=== PATIENT | male | born 1935 | race Caucasian/White ===

== ENCOUNTER 2016-10-16 06:49 | Day surgery (SDC) | payer OTHER, MEDICARE ==
[2016-10-16 07:47] VITALS: BMI 22.9
[2016-10-16] MEDS ORDERED: PROPOFOL 20 ML ONE ×3 (08:01)
[2016-10-16] MEDS ORDERED: ETOMIDATE 20 MG/10 ML AMPUL IVPUSH ONE (08:01)
[2016-10-16] MEDS ORDERED: LIDOCAINE HCL 2% (20ML MULTI-DOSE VIAL) NR ONE (08:01)
[2016-10-16 08:53] VITALS: TEMP 98
[2016-10-16 10:17] VITALS: BP 126/63; PULSE 57
--- NOTE | 2016-10-17 11:46 | PATH ---
Surgical Pathology Report Patient Name: ASHLEY AL [facility] [place]. Rec. #: [id number] /Age/Gender: 1935 (Age: 81) / M Account: [id number] Location: U-ENDOSCOPY Taken: 10/16/2016 Received: 10/16/2016 Reported: 10/17/2016 Physicians: Liban Turner M.D. 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 DUODENUM, BIOPSY: DUODENAL MUCOSA WITHOUT SIGNIFICANT PATHOLOGIC CHANGE. NO HISTOLOGIC EVIDENCE OF GLUTEN SENSITIVE ENTEROPATHY (CELIAC DISEASE). B. 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 IMMUNOSTAIN FOR H. PYLORI IS NEGATIVE FOR ORGANISMS. Electronically Signed Declan Seo M.D. Gross Description A. Received in formalin, labeled "biopsy duodenum" are 3 timmons, irregular portions of soft tissue ranging from 0.2-0.7 cm in greatest dimension. The specimens are submitted in toto in one cassette. B. Received in formalin, labeled "biopsy gastric body erosion" is a timmons, irregular portion of soft tissue measuring 0.5 cm in greatest dimension. The specimen is submitted in toto in one cassette. 10/16/201610/16/2016
== END 2016-10-16 10:15 | disposition home or self-care (01) ==
LOC: JASU-ENDO 06:49
PROVIDERS: ATTEND Internal Medicine Gastroenterology
PROC: 0DB98ZX Excision of Duodenum, Via Natural or Artificial Opening Endoscopic, Diagnostic (ICD-10-PCS; 2016-10-16)
PROC: 0DB68ZX Excision of Stomach, Via Natural or Artificial Opening Endoscopic, Diagnostic (ICD-10-PCS; 2016-10-16)
PROC: 0DJD8ZZ Inspection of Lower Intestinal Tract, Via Natural or Artificial Opening Endoscopic (ICD-10-PCS; principal; 2016-10-16 08:00)
DX: D50.9 Iron deficiency anemia, unspecified (principal); K57.30 Diverticulosis of large intestine without perforation or abscess without bleeding; K63.89 Other specified diseases of intestine; K64.1 Second degree hemorrhoids; K62.7 Radiation proctitis; K25.9 Gastric ulcer, unspecified as acute or chronic, without hemorrhage or perforation
CPT/HCPCS: 88305-TC; 88342-TC

== ENCOUNTER 2020-08-06 18:30 | Inpatient (IN) | payer OTHER, MEDICARE ==
[2020-08-06] MEDS ORDERED: LIDOCAINE HCL 2% JELLY 10 ML CARTRIDGE ONE (19:00)
[2020-08-06 19:10] LABS: EOS % 0.1 % (0-4.5); HEMATOCRIT 43.1 % (35.4-49); HEMOGLOBIN 13.9 GM/dL (11.7-16.9); LYMPH % 3.6 % (8-40); MCH 29.8 pg (25.7-33.7); MCHC 32.2 g/dl (32.0-35.9); MEAN CELL VOLUME 92.6 fl (80-96); MEAN PLT VOLUME 10.1 fl (7.5-11.1); MONO % 1.1 % (3.8-10.2); NEUT % 95.2 % (42.8-82.8); PLATELET COUNT 222 K/MM3 (134-434); RBC 4.65 M/mm3 (4.00-5.60); RDW 14.3 % (11.9-15.9); WHITE BLOOD COUNT 26.3 K/mm3 (4.0-10.0)
[2020-08-06 19:17] LABS: INR 1.39 (0.83-1.09); PROTHROMBIN TIME (PATIENT) 16.7 SEC (9.7-13.0)
[2020-08-06 19:20] LABS: ACTIVATED PTT 32.5 SECONDS (25.2-36.5)
[2020-08-06 19:30] LABS: CHLORIDE 107 mmol/L (98-107); SODIUM 137 mmol/L (136-145)
[2020-08-06 19:31] LABS: VENOUS BASE EXCESS -8.8 mmol/L (-2-2); VENOUS O2 SATURATION 42.5 % (70-80); VENOUS PCO2 30.3 mmHg (38-52); VENOUS PH 7.332 (7.310-7.410)
[2020-08-06 19:34] LABS: EPI CELLS >36 /uL (0-25.1); HYALINE CASTS 7 /uL (0-3.1); PH,URINE >= 9.0 (5.0-8.0); URINE APPEARANCE TURBID; URINE BACTERIA >9,000 /uL (0-1359); URINE BILIRUBIN NEGATIVE (NEGATIVE); URINE COLOR DK YELLOW; URINE GLUCOSE (UA) NEGATIVE (NEGATIVE); URINE KETONE NEGATIVE (NEGATIVE); URINE LEUK ESTERASE 2+ (NEGATIVE); URINE NITRITE NEGATIVE (NEGATIVE); URINE PROTEIN 3+ (NEGATIVE); URINE RBC 159 /uL (0-23.9); URINE UROBILINOGEN 0.2 mg/dL (0.2-1.0); URINE WBC 1913 /uL (0-25.8)
[2020-08-06 19:34] LABS: ALBUMIN 1.9 g/dl (3.4-5.0); ANION GAP 14 MMOL/L (8-16); CALCIUM 8.2 mg/dL (8.5-10.1); CO2 17 mmol/L (21-32); GLUCOSE,RANDOM 131 mg/dL (74-106)
[2020-08-06 19:37] LABS: CREATININE 5.5 mg/dL (0.55-1.3); SGOT/AST 68 U/L (15-37); SGPT/ALT 31 U/L (13-61)
[2020-08-06 19:40] LABS: ALK PHOS 139 U/L (45-117)
[2020-08-06 19:47] LABS: ANISOCYTOSIS 0; MACROCYTOSIS 0; PLATELET ESTIMATE NORMAL
[2020-08-06] MEDS ORDERED: LACTATED RINGERS SOLUTION 1000 ML INFUS.BAG IV ONE (20:02)
[2020-08-06] MEDS ORDERED: CEFTRIAXONE 1,000 MG in DEXTROSE 5%-WATER - 50 ML IVPB ONE (20:04)
[2020-08-06 20:21] LABS: LACTIC ACID 5.4 mmol/L (0.4-2.0)
[2020-08-06 20:22] LABS: BLOOD UREA NITROGEN 128.2 mg/dL (7-18)
[2020-08-06] MEDS ORDERED: CEFTRIAXONE 1 GM/50 ML BAG ONE (20:44)
[2020-08-06 21:18] LABS: YEAST NEGATIVE (NEGATIVE)
[2020-08-06] MEDS ORDERED: ACETAMINOPHEN 1000 MG/100 ML VIAL (NON FORMULARY) IVPB ONE (21:33)
[2020-08-06] MEDS ORDERED: ACETAMINOPHEN INJECTION 100 ML IVPB ONE (22:06)
[2020-08-06 22:52] LABS: LACTIC ACID 4.2 mmol/L (0.4-2.0)
[2020-08-06] MEDS ORDERED: SODIUM CHLORIDE 1,000 ML IV SCH (23:45)
[2020-08-07 04:58] LABS: LACTIC ACID 2.7 mmol/L (0.4-2.0)
[2020-08-07] MEDS ORDERED: DEXTROSE 5%-WATER - 50 ML IVPB ONE ×2 (08:26→10:53)
[2020-08-07] MEDS ORDERED: cefTRIAXone SODIUM 1 GM VIAL ONE (08:26)
[2020-08-07 09:40] LABS: BASO % 0.6 % (0-2.0); EOS % 0.1 % (0-4.5); HEMOGLOBIN 11.8 GM/dL (11.7-16.9); LYMPH % 1.6 % (8-40); MCH 30.1 pg (25.7-33.7); MCHC 32.8 g/dl (32.0-35.9); MEAN CELL VOLUME 91.8 fl (80-96); MEAN PLT VOLUME 10.1 fl (7.5-11.1); MONO % 0.8 % (3.8-10.2); NEUT % 96.9 % (42.8-82.8); PLATELET COUNT 160 K/MM3 (134-434); RBC 3.93 M/mm3 (4.00-5.60); RDW 14.7 % (11.9-15.9); WHITE BLOOD COUNT 29.6 K/mm3 (4.0-10.0)
[2020-08-07] MEDS ORDERED: PIPERACILLIN/TAZOB 2.25 GM 2.25 GM in DEXTROSE 5%-WATER - 50 ML IVPB SCH ×2 (10:00→18:00)
[2020-08-07] MEDS ORDERED: CEFTRIAXONE 1 GM in DEXTROSE 5%-WATER - 50 ML IVPB SCH (10:00)
[2020-08-07 10:03] LABS: CHLORIDE 113 mmol/L (98-107); SODIUM 141 mmol/L (136-145)
[2020-08-07 10:13] LABS: ALBUMIN 1.6 g/dl (3.4-5.0); ANION GAP 13 MMOL/L (8-16); CALCIUM 8.1 mg/dL (8.5-10.1); CO2 15 mmol/L (21-32); GLUCOSE,RANDOM 103 mg/dL (74-106)
[2020-08-07 10:17] LABS: CREATININE 4.9 mg/dL (0.55-1.3); SGOT/AST 90 U/L (15-37); SGPT/ALT 34 U/L (13-61)
[2020-08-07 10:18] LABS: BILIRUBIN,TOTAL 0.8 mg/dL (0.2-1); TOT PROT 5.3 g/dl (6.4-8.2)
[2020-08-07 10:19] LABS: ALK PHOS 127 U/L (45-117)
[2020-08-07 10:30] LABS: BLOOD UREA NITROGEN 139.8 mg/dL (7-18)
[2020-08-07] MEDS ORDERED: ACETAMINOPHEN 1000 MG/100 ML VIAL (NON FORMULARY) IVPB PRN ×3 (10:39→21:29)
[2020-08-07] MEDS ORDERED: PIPERACILLIN/TAZOBACTAM 2.25 GM VIAL IVPB ONE (10:53)
[2020-08-07 11:02] LABS: ANISOCYTOSIS 0; MACROCYTOSIS 0; PLATELET ESTIMATE NORMAL
[2020-08-07] MEDS ORDERED: VANCOMYCIN 1 GRAM (PRE-DOCKED) 1,000 MG/250 ML BAG IVPB ONE (12:37)
[2020-08-07] MEDS ORDERED: CLINDAMYCIN 900 MG PREMIX IVPB 900 MG/50 ML BAG IVPB SCH ×2 (12:45→18:00)
[2020-08-07] MEDS ORDERED: LIDOCAINE HCL 1%, 10 MG/ML (20ML VIAL) NR SCH ×2 (13:45→17:53)
[2020-08-07] MEDS ORDERED: PT OWN MED DRAWER 7, Y5N ONE (13:51)
[2020-08-07] MEDS ORDERED: ETOMIDATE 20 MG/10 ML AMPUL IVPUSH ONE (14:51)
[2020-08-07] MEDS ORDERED: PROPOFOL 20 ML ONE (14:52)
[2020-08-07] MEDS ORDERED: ROCURONIUM BROMIDE 50 MG/5 ML SYRINGE ONE ×2 (14:54→17:13)
[2020-08-07] MEDS ORDERED: ePHEDrine SULFATE 50 MG/1 ML AMPULE ONE (15:02)
[2020-08-07] MEDS ORDERED: PHENYLEPHRINE HCL 10 MG/1 ML SINGLE DOSE VIAL ONE (15:03)
[2020-08-07] MEDS ORDERED: EPHEDRINE SULFATE/0.9% NACL/PF 50 MG/10 ML SYRINGE NR ONE (15:20)
[2020-08-07] MEDS ORDERED: LIDOCAINE HCL/PF 2% SDV 5ML VIAL ONE (16:29)
[2020-08-07] MEDS ORDERED: ACETAMINOPHEN INJECTION 100 ML IVPB ONE (16:33)
[2020-08-07] MEDS ORDERED: SODIUM HYPOCHLORITE 0.5% 473 ML- BULK BOTTLE TP ONE (16:48)
[2020-08-07] MEDS ORDERED: DEXMEDETOMIDINE IN 0.9 % NACL 400 MCG/100 ML VIAL IVPB SCH (17:45)
[2020-08-07] MEDS ORDERED: SODIUM CHLORIDE 1,000 ML IV SCH ×3 (17:53→18:05)
[2020-08-07] MEDS ORDERED: MIDAZOLAM HCL 2 MG/2 ML SINGLE DOSE VIAL IVPUSH ONE (17:54)
[2020-08-07] MEDS ORDERED: D5-1/2NS+20 MEQ KCL - 20 MEQ/1,000 ML INFUS.BAG IV SCH (18:00)
[2020-08-07] MEDS ORDERED: LACTATED RINGERS SOLUTION 1,000 ML/1,000 ML INFUS.BAG IV SCH ×2 (18:15→21:29)
[2020-08-07] MEDS ORDERED: MUPIROCIN 2% TOPICAL OINTMENT FOR DECOLONIZATION NS SCH ×2 (22:00)
[2020-08-07] MEDS ORDERED: CHLORHEXIDINE GLUCONATE 4% CLEANSER FOR DECOLONIZATION TP SCH ×2 (22:00)
[2020-08-08] MEDS ORDERED: PIPERACILLIN/TAZOBACTAM 2.25 GM VIAL IVPB ONE ×4 (01:18→23:31)
[2020-08-08] MEDS ORDERED: DEXTROSE 5%-WATER - 50 ML IVPB ONE ×4 (01:18→23:32)
[2020-08-08] MEDS: PIPERACILLIN/TAZOB 2.25 GM 2.25 GM in DEXTROSE 5%-WATER - 50 ML IVPB SCH ×3 (01:21→17:22)
[2020-08-08] MEDS: CLINDAMYCIN 900 MG PREMIX IVPB 900 MG/50 ML BAG IVPB SCH ×3 (01:21→17:22)
[2020-08-08 07:05] LABS: BASO % 0.2 % (0-2.0); EOS % 0.1 % (0-4.5); HEMATOCRIT 28.1 % (35.4-49); HEMOGLOBIN 9.1 GM/dL (11.7-16.9); LYMPH % 2.9 % (8-40); MCH 30.1 pg (25.7-33.7); MCHC 32.4 g/dl (32.0-35.9); MEAN PLT VOLUME 10.1 fl (7.5-11.1); MONO % 1.8 % (3.8-10.2); PLATELET COUNT 101 K/MM3 (134-434); RBC 3.03 M/mm3 (4.00-5.60); RDW 14.9 % (11.9-15.9); WHITE BLOOD COUNT 21.8 K/mm3 (4.0-10.0)
[2020-08-08 07:29] LABS: CHLORIDE 115 mmol/L (98-107); SODIUM 142 mmol/L (136-145)
[2020-08-08 07:32] LABS: ANION GAP 10 MMOL/L (8-16); CO2 17 mmol/L (21-32); GLUCOSE,RANDOM 91 mg/dL (74-106); MAGNESIUM 2.8 mg/dL (1.8-2.4)
[2020-08-08 07:35] LABS: CREATININE 4.5 mg/dL (0.55-1.3); PHOSPHOROUS 7.8 mg/dL (2.5-4.9); SGOT/AST 58 U/L (15-37); SGPT/ALT 26 U/L (13-61)
[2020-08-08 07:36] LABS: BILIRUBIN,TOTAL 0.6 mg/dL (0.2-1)
[2020-08-08 07:37] LABS: TOT PROT 4.1 g/dl (6.4-8.2)
[2020-08-08 07:51] LABS: ALBUMIN 1.2 g/dl (3.4-5.0); ALK PHOS 91 U/L (45-117)
[2020-08-08] MEDS: FENTANYL NS IVPB 500 MCG/100 ML BAG IVPB SCH (09:05)
[2020-08-08 09:06] LABS: ANISOCYTOSIS 0; MACROCYTOSIS 0; PLATELET ESTIMATE DECREASED; TARGET CELLS 1+
[2020-08-08] MEDS ORDERED: LACTATED RINGERS SOLUTION 1000 ML INFUS.BAG IV ONE ×2 (09:20→09:21)
[2020-08-08] MEDS ORDERED: DEXTROSE 5%-0.45% SALINE 1,000 ML IV SCH (09:45)
[2020-08-08] MEDS: DEXMEDETOMIDINE IN 0.9 % NACL 400 MCG/100 ML VIAL IVPB SCH ×2 (12:14→16:10)
[2020-08-08] MEDS ORDERED: SODIUM CHLORIDE 0.9% 500 ML INFUS.BAG IV ONE ×2 (13:37→17:19)
[2020-08-08] MEDS ORDERED: LEVOTHYROXINE SODIUM 100 MCG VIAL IVPUSH SCH (14:45)
[2020-08-08] MEDS: NOREPINEPHRINE BITARTRATE 16,000 MCG in SODIUM CHLORIDE 484 ML IV SCH (15:15)
[2020-08-08 16:07] LABS: ARTERIAL BLD GAS O2 SATURATION 98.7 mmHg (95-98); ARTERIAL BLOOD GAS BASE EXCESS -11.1 mmol/L (-2-2); ARTERIAL BLOOD GAS PO2 149.1 mmHg (80-100); ARTERIAL BLOOD GAS pH 7.265 (7.350-7.450)
[2020-08-08 16:11] LABS: ALLENS TEST POSITIVE
[2020-08-08 16:12] LABS: VENT RATE 14
[2020-08-08 16:13] LABS: VENT MODE AC
[2020-08-08 18:17] LABS: HEMATOCRIT 26.7 % (35.4-49); HEMOGLOBIN 8.5 GM/dL (11.7-16.9); MCH 29.7 pg (25.7-33.7); MCHC 31.8 g/dl (32.0-35.9); MEAN CELL VOLUME 93.2 fl (80-96); MEAN PLT VOLUME 10.1 fl (7.5-11.1); PLATELET COUNT 105 K/MM3 (134-434); RBC 2.87 M/mm3 (4.00-5.60); RDW 14.6 % (11.9-15.9); WHITE BLOOD COUNT 21.7 K/mm3 (4.0-10.0)
[2020-08-08 18:43] LABS: CHLORIDE 116 mmol/L (98-107); SODIUM 143 mmol/L (136-145)
[2020-08-08 18:46] LABS: ANION GAP 9 MMOL/L (8-16); CO2 18 mmol/L (21-32); GLUCOSE,RANDOM 141 mg/dL (74-106)
[2020-08-08 18:48] LABS: CREATININE 3.9 mg/dL (0.55-1.3)
[2020-08-08 18:54] LABS: BLOOD UREA NITROGEN 136.8 mg/dL (7-18)
[2020-08-08] MEDS: DEXTROSE 5%-0.45% SALINE 1,000 ML IV SCH (19:00)
[2020-08-09] MEDS: PIPERACILLIN/TAZOB 2.25 GM 2.25 GM in DEXTROSE 5%-WATER - 50 ML IVPB SCH ×3 (01:17→17:48)
[2020-08-09] MEDS: CLINDAMYCIN 900 MG PREMIX IVPB 900 MG/50 ML BAG IVPB SCH ×3 (02:01→17:46)
[2020-08-09 07:25] LABS: BASO % 0.1 % (0-2.0); HEMATOCRIT 29.4 % (35.4-49); HEMOGLOBIN 9.6 GM/dL (11.7-16.9); LYMPH % 4.6 % (8-40); MCH 29.9 pg (25.7-33.7); MCHC 32.6 g/dl (32.0-35.9); MEAN CELL VOLUME 91.9 fl (80-96); MEAN PLT VOLUME 9.6 fl (7.5-11.1); MONO % 1.8 % (3.8-10.2); NEUT % 93.5 % (42.8-82.8); PLATELET COUNT 119 K/MM3 (134-434); WHITE BLOOD COUNT 22.6 K/mm3 (4.0-10.0)
[2020-08-09 07:37] LABS: CHLORIDE 117 mmol/L (98-107); SODIUM 143 mmol/L (136-145)
[2020-08-09 07:44] LABS: ALBUMIN 1.3 g/dl (3.4-5.0); ANION GAP 9 MMOL/L (8-16); CO2 17 mmol/L (21-32); GLUCOSE,RANDOM 146 mg/dL (74-106); MAGNESIUM 2.7 mg/dL (1.8-2.4)
[2020-08-09 07:45] LABS: CREATININE 3.6 mg/dL (0.55-1.3)
[2020-08-09 07:46] LABS: PHOSPHOROUS 6.4 mg/dL (2.5-4.9)
[2020-08-09 07:48] LABS: ALK PHOS 108 U/L (45-117); BILIRUBIN,TOTAL 0.4 mg/dL (0.2-1); SGOT/AST 42 U/L (15-37); SGPT/ALT 26 U/L (13-61); TOT PROT 4.8 g/dl (6.4-8.2)
[2020-08-09 07:57] LABS: CALCIUM 6.9 mg/dL (8.5-10.1)
[2020-08-09] MEDS: NOREPINEPHRINE BITARTRATE 16,000 MCG in SODIUM CHLORIDE 484 ML IV SCH ×2 (09:29→17:40)
[2020-08-09] MEDS ORDERED: PIPERACILLIN/TAZOBACTAM 2.25 GM VIAL IVPB ONE ×2 (10:45→17:44)
[2020-08-09] MEDS ORDERED: DEXTROSE 5%-WATER - 50 ML IVPB ONE ×2 (10:46→17:44)
[2020-08-09] MEDS ORDERED: PT OWN MED DRAWER 7, Y5N ONE (11:11)
[2020-08-09 11:13] LABS: ANISOCYTOSIS 1+; MACROCYTOSIS 1+; OVALOCYTE 1+; PLATELET ESTIMATE DECREASED; TARGET CELLS 1+; TOXIC GRANULATION 2+
[2020-08-09] MEDS: VASOPRESSIN 40 UNITS in SODIUM CHLORIDE 98 ML IVPB SCH ×3 (11:48→20:11)
[2020-08-09] MEDS: FENTANYL NS IVPB 500 MCG/100 ML BAG IVPB SCH (15:24)
[2020-08-09] MEDS: DEXMEDETOMIDINE IN 0.9 % NACL 400 MCG/100 ML VIAL IVPB SCH (15:24)
[2020-08-09] MEDS: DEXTROSE 5%-0.45% SALINE 1,000 ML IV SCH ×2 (15:30→20:08)
[2020-08-10] MEDS: FENTANYL NS IVPB 500 MCG/100 ML BAG IVPB SCH ×4 (01:01→20:40)
[2020-08-10] MEDS ORDERED: PIPERACILLIN/TAZOBACTAM 2.25 GM VIAL IVPB ONE ×3 (01:05→17:47)
[2020-08-10] MEDS ORDERED: DEXTROSE 5%-WATER - 50 ML IVPB ONE ×3 (01:05→17:47)
[2020-08-10] MEDS: CLINDAMYCIN 900 MG PREMIX IVPB 900 MG/50 ML BAG IVPB SCH ×2 (01:10→09:54)
[2020-08-10] MEDS: PIPERACILLIN/TAZOB 2.25 GM 2.25 GM in DEXTROSE 5%-WATER - 50 ML IVPB SCH ×3 (02:05→17:48)
[2020-08-10] MEDS: DEXMEDETOMIDINE IN 0.9 % NACL 400 MCG/100 ML VIAL IVPB SCH ×2 (02:32→15:54)
[2020-08-10] MEDS: VASOPRESSIN 40 UNITS in SODIUM CHLORIDE 98 ML IVPB SCH ×2 (02:33→19:28)
[2020-08-10 07:12] LABS: EOS % 0.4 % (0-4.5); HEMATOCRIT 26.4 % (35.4-49); HEMOGLOBIN 8.6 GM/dL (11.7-16.9); LYMPH % 3.5 % (8-40); MCHC 32.8 g/dl (32.0-35.9); MEAN CELL VOLUME 91.7 fl (80-96); MEAN PLT VOLUME 10.2 fl (7.5-11.1); MONO % 2.1 % (3.8-10.2); PLATELET COUNT 94 K/MM3 (134-434); RBC 2.88 M/mm3 (4.00-5.60); RDW 15.2 % (11.9-15.9); WHITE BLOOD COUNT 16.9 K/mm3 (4.0-10.0)
[2020-08-10 07:27] LABS: CALCIUM 7.1 mg/dL (8.5-10.1); MAGNESIUM 2.4 mg/dL (1.8-2.4)
[2020-08-10 07:28] LABS: ALBUMIN 1.2 g/dl (3.4-5.0)
[2020-08-10 07:30] LABS: CREATININE 2.8 mg/dL (0.55-1.3); PHOSPHOROUS 5.2 mg/dL (2.5-4.9)
[2020-08-10 07:32] LABS: BILIRUBIN,TOTAL 0.6 mg/dL (0.2-1); TOT PROT 4.8 g/dl (6.4-8.2)
[2020-08-10 07:41] LABS: BLOOD UREA NITROGEN 99.7 mg/dL (7-18)
[2020-08-10] MEDS: DEXTROSE 5%-0.45% SALINE 1,000 ML IV SCH (10:00)
[2020-08-10 10:28] LABS: ANISOCYTOSIS 1+; MACROCYTOSIS 1+; PLATELET ESTIMATE DECREASED
[2020-08-10] MEDS ORDERED: PT OWN MED DRAWER 7, Y5N ONE (14:46)
[2020-08-10] MEDS ORDERED: SODIUM HYPOCHLORITE 0.5% 473 ML- BULK BOTTLE TP SCH (15:00)
[2020-08-10 15:43] VITALS: BMI 21.2
[2020-08-10] MEDS: MORPHINE SULFATE 2 MG/ML VIAL IVPUSH PRN (16:40)
[2020-08-10] MEDS ORDERED: MORPHINE SULFATE 2 MG/ML VIAL ONE (16:41)
[2020-08-10] MEDS: NOREPINEPHRINE BITARTRATE 16,000 MCG in SODIUM CHLORIDE 484 ML IV SCH (17:43)
[2020-08-10] MEDS: SODIUM HYPOCHLORITE 0.25%- 473 ML BULK BOTTLE TP SCH (17:44)
[2020-08-10] MEDS ORDERED: PROPOFOL 1,000,000 MCG/100 ML VIAL ONE (18:56)
[2020-08-10] MEDS: PROPOFOL 1,000,000 MCG/100 ML VIAL IVPUSH SCH (19:00)
[2020-08-10] MEDS ORDERED: POLYETHYLENE GLYCOL 3350 119 GM BTL PO PRN (20:50)
[2020-08-10] MEDS ORDERED: ALBUTEROL SO4 2.5/IPRATROPIUM 0.5 INH SOL 3 ML VIAL.NEB. NEB PRN (20:50)
[2020-08-10] MEDS: HEPARIN NA (PORCINE) 5,000 UNITS/ML 1ML VIAL SQ SCH (21:00)
[2020-08-11] MEDS ORDERED: DEXTROSE 5%-WATER - 50 ML IVPB ONE ×3 (01:08→16:39)
[2020-08-11] MEDS ORDERED: PIPERACILLIN/TAZOBACTAM 2.25 GM VIAL IVPB ONE ×3 (01:08→16:39)
[2020-08-11] MEDS: PIPERACILLIN/TAZOB 2.25 GM 2.25 GM in DEXTROSE 5%-WATER - 50 ML IVPB SCH ×3 (01:35→18:28)
[2020-08-11] MEDS: DEXTROSE 5%-0.45% SALINE 1,000 ML IV SCH ×2 (01:36→09:48)
[2020-08-11] MEDS: FENTANYL NS IVPB 500 MCG/100 ML BAG IVPB SCH ×2 (03:48→09:47)
[2020-08-11] MEDS: PROPOFOL 1,000,000 MCG/100 ML VIAL IVPUSH SCH ×2 (03:48→20:35)
[2020-08-11 07:32] LABS: BASO % 0.2 % (0-2.0); EOS % 0.5 % (0-4.5); HEMATOCRIT 24.8 % (35.4-49); HEMOGLOBIN 8.1 GM/dL (11.7-16.9); LYMPH % 4.4 % (8-40); MCH 29.6 pg (25.7-33.7); MCHC 32.5 g/dl (32.0-35.9); MEAN CELL VOLUME 91.1 fl (80-96); MEAN PLT VOLUME 10.5 fl (7.5-11.1); NEUT % 92.9 % (42.8-82.8); PLATELET COUNT 84 K/MM3 (134-434); RBC 2.73 M/mm3 (4.00-5.60); RDW 14.8 % (11.9-15.9); WHITE BLOOD COUNT 15.9 K/mm3 (4.0-10.0)
[2020-08-11 07:56] LABS: BLOOD UREA NITROGEN 82.3 mg/dL (7-18)
[2020-08-11 07:57] LABS: ALBUMIN 1.2 g/dl (3.4-5.0); MAGNESIUM 2.2 mg/dL (1.8-2.4)
[2020-08-11 07:59] LABS: CREATININE 2.1 mg/dL (0.55-1.3); PHOSPHOROUS 4.2 mg/dL (2.5-4.9)
[2020-08-11 08:01] LABS: TOT PROT 4.8 g/dl (6.4-8.2)
[2020-08-11 08:04] LABS: BILIRUBIN,TOTAL 1.2 mg/dL (0.2-1)
[2020-08-11 08:39] LABS: CALCIUM 7.2 mg/dL (8.5-10.1)
[2020-08-11] MEDS ORDERED: SODIUM CHLORIDE 500 ML IV STA (08:50)
[2020-08-11] MEDS: KCL 10 MEQ IVPB 10 MEQ/100 ML INFUS.BAG IVPB SCH ×2 (09:41→20:50)
[2020-08-11] MEDS: SODIUM HYPOCHLORITE 0.25%- 473 ML BULK BOTTLE TP SCH (09:46)
[2020-08-11] MEDS: HEPARIN NA (PORCINE) 5,000 UNITS/ML 1ML VIAL SQ SCH ×2 (09:46→22:44)
[2020-08-11 12:51] LABS: ANISOCYTOSIS 0; HELMET CELLS 0; HOWELL-JOLLY BODIES 0; MACROCYTOSIS 0; OVALOCYTE 0; PLATELET ESTIMATE DECREASED; ROULEAU 0; SICKELED CELLS 0; TARGET CELLS 0; TEAR DROP CELLS 0; TOXIC GRANULATION 0
[2020-08-11] MEDS: NOREPINEPHRINE BITARTRATE 16,000 MCG in SODIUM CHLORIDE 484 ML IV SCH (20:35)
[2020-08-11] MEDS: VASOPRESSIN 40 UNITS in SODIUM CHLORIDE 98 ML IVPB SCH (20:35)
[2020-08-11] MEDS ORDERED: METOPROLOL TARTRATE 5 MG/5 ML VIAL ONE (23:55)
[2020-08-11] MEDS ORDERED: METOPROLOL TARTRATE 5 MG/5 ML VIAL IVPUSH PRN (23:55)
[2020-08-11] MEDS: MORPHINE SULFATE 2 MG/ML VIAL IVPUSH PRN (23:57)
[2020-08-12] MEDS ORDERED: DEXTROSE 5%-WATER - 50 ML IVPB ONE ×3 (01:30→17:20)
[2020-08-12] MEDS ORDERED: PIPERACILLIN/TAZOBACTAM 2.25 GM VIAL IVPB ONE ×3 (01:30→17:20)
[2020-08-12] MEDS: PIPERACILLIN/TAZOB 2.25 GM 2.25 GM in DEXTROSE 5%-WATER - 50 ML IVPB SCH ×3 (01:41→17:28)
[2020-08-12 07:13] LABS: BASO % 0.2 % (0-2.0); EOS % 1.1 % (0-4.5); HEMATOCRIT 25.6 % (35.4-49); HEMOGLOBIN 8.6 GM/dL (11.7-16.9); LYMPH % 6.1 % (8-40); MCH 30.3 pg (25.7-33.7); MCHC 33.6 g/dl (32.0-35.9); MEAN PLT VOLUME 10.1 fl (7.5-11.1); MONO % 2.4 % (3.8-10.2); NEUT % 90.2 % (42.8-82.8); PLATELET COUNT 128 K/MM3 (134-434); RBC 2.84 M/mm3 (4.00-5.60); RDW 14.6 % (11.9-15.9); WHITE BLOOD COUNT 13.5 K/mm3 (4.0-10.0)
[2020-08-12 07:40] LABS: ALBUMIN 1.3 g/dl (3.4-5.0); CALCIUM 7.2 mg/dL (8.5-10.1)
[2020-08-12 07:41] LABS: MAGNESIUM 2.2 mg/dL (1.8-2.4)
[2020-08-12 07:44] LABS: CREATININE 1.3 mg/dL (0.55-1.3)
[2020-08-12 07:45] LABS: BILIRUBIN,TOTAL 0.7 mg/dL (0.2-1); TOT PROT 5.1 g/dl (6.4-8.2)
[2020-08-12 07:50] LABS: BLOOD UREA NITROGEN 48.2 mg/dL (7-18)
[2020-08-12] MEDS ORDERED: KCL 10 MEQ IVPB 10 MEQ/100 ML INFUS.BAG IVPB SCH (08:15)
[2020-08-12] MEDS: FENTANYL NS IVPB 500 MCG/100 ML BAG IVPB SCH (08:51)
[2020-08-12] MEDS: SODIUM HYPOCHLORITE 0.25%- 473 ML BULK BOTTLE TP SCH (09:08)
[2020-08-12] MEDS: HEPARIN NA (PORCINE) 5,000 UNITS/ML 1ML VIAL SQ SCH ×2 (09:08→22:09)
[2020-08-12] MEDS ORDERED: FUROSEMIDE 40 MG/4 ML INJECTABLE VIAL IVPUSH ONE (10:07)
[2020-08-12] MEDS ORDERED: FUROSEMIDE 40 MG/4 ML INJECTABLE VIAL ONE (10:14)
[2020-08-12] MEDS: DEXTROSE 5%-0.45% SALINE 1,000 ML IV SCH ×2 (11:58→17:27)
[2020-08-12] MEDS: AMINO ACIDS/PROTEIN HYDROLYS 30 ML LIQUID.PKT PO SCH ×2 (11:58→17:27)
[2020-08-12] MEDS: MORPHINE SULFATE 2 MG/ML VIAL IVPUSH PRN (13:58)
[2020-08-12] MEDS: NOREPINEPHRINE BITARTRATE 16,000 MCG in SODIUM CHLORIDE 484 ML IV SCH (15:40)
[2020-08-12] MEDS: VASOPRESSIN 40 UNITS in SODIUM CHLORIDE 98 ML IVPB SCH (17:27)
[2020-08-12] MEDS ORDERED: ALBUTEROL SO4 2.5/IPRATROPIUM 0.5 INH SOL 3 ML VIAL.NEB. NEB PRN (20:07)
[2020-08-12] MEDS ORDERED: METOPROLOL TARTRATE 5 MG/5 ML VIAL IVPUSH PRN (20:07)
[2020-08-12] MEDS ORDERED: POLYETHYLENE GLYCOL 3350 119 GM BTL PO PRN (20:07)
[2020-08-13] MEDS ORDERED: PIPERACILLIN/TAZOBACTAM 2.25 GM VIAL IVPB ONE ×3 (01:22→18:12)
[2020-08-13] MEDS ORDERED: DEXTROSE 5%-WATER - 50 ML IVPB ONE ×3 (01:22→18:13)
[2020-08-13] MEDS: PIPERACILLIN/TAZOB 2.25 GM 2.25 GM in DEXTROSE 5%-WATER - 50 ML IVPB SCH ×3 (01:37→18:19)
[2020-08-13] MEDS: AMINO ACIDS/PROTEIN HYDROLYS 30 ML LIQUID.PKT PO SCH ×3 (09:12→18:20)
[2020-08-13] MEDS ORDERED: PT OWN MED DRAWER 7, Y5N ONE (11:00)
[2020-08-13] MEDS: HEPARIN NA (PORCINE) 5,000 UNITS/ML 1ML VIAL SQ SCH ×2 (11:12→22:08)
[2020-08-13] MEDS: DEXTROSE 5%-0.45% SALINE 1,000 ML IV SCH (11:14)
[2020-08-13] MEDS: MORPHINE SULFATE 2 MG/ML VIAL IVPUSH PRN ×2 (11:15→18:23)
[2020-08-13] MEDS: PROPOFOL 1,000,000 MCG/100 ML VIAL IVPUSH SCH (11:16)
[2020-08-13 11:23] LABS: BASO % 0.1 % (0-2.0); EOS % 2.1 % (0-4.5); HEMATOCRIT 26.7 % (35.4-49); HEMOGLOBIN 8.7 GM/dL (11.7-16.9); LYMPH % 6.3 % (8-40); MCHC 32.5 g/dl (32.0-35.9); MEAN CELL VOLUME 92.2 fl (80-96); MEAN PLT VOLUME 10.7 fl (7.5-11.1); MONO % 3.5 % (3.8-10.2); PLATELET COUNT 181 K/MM3 (134-434); RBC 2.89 M/mm3 (4.00-5.60); RDW 14.8 % (11.9-15.9); WHITE BLOOD COUNT 16.2 K/mm3 (4.0-10.0)
[2020-08-13 11:40] LABS: CALCIUM 7.4 mg/dL (8.5-10.1)
[2020-08-13 11:41] LABS: ALBUMIN 1.3 g/dl (3.4-5.0); BLOOD UREA NITROGEN 38.2 mg/dL (7-18); MAGNESIUM 2.1 mg/dL (1.8-2.4)
[2020-08-13 11:44] LABS: CREATININE 1.7 mg/dL (0.55-1.3); PHOSPHOROUS 2.8 mg/dL (2.5-4.9)
[2020-08-13 11:45] LABS: BILIRUBIN,TOTAL 0.5 mg/dL (0.2-1); TOT PROT 5.6 g/dl (6.4-8.2)
[2020-08-13] MEDS ORDERED: SODIUM CHLORIDE 0.45% 1,000 ML IV SCH (14:00)
[2020-08-13] MEDS: SODIUM HYPOCHLORITE 0.25%- 473 ML BULK BOTTLE TP SCH (15:49)
[2020-08-14] MEDS ORDERED: DEXTROSE 5%-WATER - 50 ML IVPB ONE ×4 (01:27→20:15)
[2020-08-14] MEDS ORDERED: PIPERACILLIN/TAZOBACTAM 2.25 GM VIAL IVPB ONE ×4 (01:27→20:15)
[2020-08-14] MEDS: PIPERACILLIN/TAZOB 2.25 GM 2.25 GM in DEXTROSE 5%-WATER - 50 ML IVPB SCH ×4 (02:11→20:45)
[2020-08-14] MEDS ORDERED: PT OWN MED DRAWER 7, Y5N ONE (10:34)
[2020-08-14] MEDS: AMINO ACIDS/PROTEIN HYDROLYS 30 ML LIQUID.PKT PO SCH ×2 (10:38→18:29)
[2020-08-14] MEDS: HEPARIN NA (PORCINE) 5,000 UNITS/ML 1ML VIAL SQ SCH ×2 (10:39→21:39)
[2020-08-14] MEDS: MULTIVIT-MINERALS ORAL LIQUID PO SCH (10:41)
[2020-08-14] MEDS: SODIUM HYPOCHLORITE 0.25%- 473 ML BULK BOTTLE TP SCH (11:02)
[2020-08-14] MEDS: SODIUM CHLORIDE 0.45% 1,000 ML IV SCH (15:24)
[2020-08-15] MEDS ORDERED: DEXTROSE 5%-WATER - 50 ML IVPB ONE ×4 (02:17→20:11)
[2020-08-15] MEDS ORDERED: PIPERACILLIN/TAZOBACTAM 2.25 GM VIAL IVPB ONE ×4 (02:17→20:11)
[2020-08-15] MEDS: PIPERACILLIN/TAZOB 2.25 GM 2.25 GM in DEXTROSE 5%-WATER - 50 ML IVPB SCH ×4 (02:38→21:10)
[2020-08-15] MEDS: SODIUM CHLORIDE 0.45% 1,000 ML IV SCH ×2 (05:25→15:44)
[2020-08-15 09:20] LABS: HEMATOCRIT 24.6 % (35.4-49); MCH 30.4 pg (25.7-33.7); MCHC 32.6 g/dl (32.0-35.9); MEAN CELL VOLUME 93.1 fl (80-96); MEAN PLT VOLUME 9.9 fl (7.5-11.1); PLATELET COUNT 263 K/MM3 (134-434); RBC 2.64 M/mm3 (4.00-5.60); RDW 14.4 % (11.9-15.9); WHITE BLOOD COUNT 14.5 K/mm3 (4.0-10.0)
[2020-08-15] MEDS ORDERED: PT OWN MED DRAWER 7, Y5N ONE (09:51)
[2020-08-15] MEDS: HEPARIN NA (PORCINE) 5,000 UNITS/ML 1ML VIAL SQ SCH ×2 (09:53→21:10)
[2020-08-15] MEDS: AMINO ACIDS/PROTEIN HYDROLYS 30 ML LIQUID.PKT PO SCH ×2 (09:53→18:12)
[2020-08-15] MEDS: SODIUM HYPOCHLORITE 0.25%- 473 ML BULK BOTTLE TP SCH (09:54)
[2020-08-15] MEDS: MULTIVIT-MINERALS ORAL LIQUID PO SCH (09:54)
[2020-08-15 09:58] LABS: ALBUMIN 1.3 g/dl (3.4-5.0); BLOOD UREA NITROGEN 29.6 mg/dL (7-18)
[2020-08-15 09:59] LABS: CALCIUM 7.1 mg/dL (8.5-10.1)
[2020-08-15 10:01] LABS: CREATININE 1.2 mg/dL (0.55-1.3)
[2020-08-15 10:03] LABS: BILIRUBIN,TOTAL 0.4 mg/dL (0.2-1)
[2020-08-16] MEDS: SODIUM CHLORIDE 0.45% 1,000 ML IV SCH ×2 (02:41→10:38)
[2020-08-16] MEDS ORDERED: PIPERACILLIN/TAZOBACTAM 2.25 GM VIAL IVPB ONE ×4 (02:56→21:23)
[2020-08-16] MEDS ORDERED: DEXTROSE 5%-WATER - 50 ML IVPB ONE ×4 (02:56→21:23)
[2020-08-16] MEDS: PIPERACILLIN/TAZOB 2.25 GM 2.25 GM in DEXTROSE 5%-WATER - 50 ML IVPB SCH ×4 (03:02→21:30)
[2020-08-16] MEDS ORDERED: PT OWN MED DRAWER 7, Y5N ONE (09:02)
[2020-08-16] MEDS: HEPARIN NA (PORCINE) 5,000 UNITS/ML 1ML VIAL SQ SCH ×2 (09:38→21:34)
[2020-08-16] MEDS: AMINO ACIDS/PROTEIN HYDROLYS 30 ML LIQUID.PKT PO SCH ×2 (09:38→17:21)
[2020-08-16] MEDS: MULTIVIT-MINERALS ORAL LIQUID PO SCH (09:39)
[2020-08-16] MEDS ORDERED: ACETAMINOPHEN 325 MG TABLET (FP) PO PRN (14:09)
[2020-08-16] MEDS ORDERED: traMADol HCL 50 MG TABLET PO PRN (14:09)
[2020-08-16] MEDS: SODIUM HYPOCHLORITE 0.25%- 473 ML BULK BOTTLE TP SCH (16:58)
[2020-08-17] MEDS ORDERED: PIPERACILLIN/TAZOBACTAM 2.25 GM VIAL IVPB ONE ×4 (02:26→20:46)
[2020-08-17] MEDS ORDERED: DEXTROSE 5%-WATER - 50 ML IVPB ONE ×4 (02:26→20:46)
[2020-08-17] MEDS: PIPERACILLIN/TAZOB 2.25 GM 2.25 GM in DEXTROSE 5%-WATER - 50 ML IVPB SCH ×4 (02:27→20:53)
[2020-08-17] MEDS: SODIUM CHLORIDE 0.45% 1,000 ML IV SCH ×2 (06:52→10:32)
[2020-08-17 08:41] LABS: BASO % 0.7 % (0-2.0); HEMATOCRIT 21.2 % (35.4-49); HEMOGLOBIN 7.1 GM/dL (11.7-16.9); LYMPH % 9.5 % (8-40); MCHC 33.4 g/dl (32.0-35.9); MEAN CELL VOLUME 92.7 fl (80-96); MEAN PLT VOLUME 9.6 fl (7.5-11.1); MONO % 5.6 % (3.8-10.2); NEUT % 82.2 % (42.8-82.8); PLATELET COUNT 327 K/MM3 (134-434); RBC 2.29 M/mm3 (4.00-5.60); RDW 15.1 % (11.9-15.9); WHITE BLOOD COUNT 10.3 K/mm3 (4.0-10.0)
[2020-08-17 09:02] LABS: CALCIUM 7.8 mg/dL (8.5-10.1)
[2020-08-17 09:03] LABS: ALBUMIN 1.2 g/dl (3.4-5.0); BLOOD UREA NITROGEN 22.6 mg/dL (7-18)
[2020-08-17 09:06] LABS: CREATININE 1.1 mg/dL (0.55-1.3)
[2020-08-17 09:07] LABS: BILIRUBIN,TOTAL 0.4 mg/dL (0.2-1)
[2020-08-17 09:08] LABS: TOT PROT 4.9 g/dl (6.4-8.2)
[2020-08-17] MEDS ORDERED: PT OWN MED DRAWER 7, Y5N ONE (09:15)
[2020-08-17] MEDS: AMINO ACIDS/PROTEIN HYDROLYS 30 ML LIQUID.PKT PO SCH ×2 (10:27→17:52)
[2020-08-17] MEDS: HEPARIN NA (PORCINE) 5,000 UNITS/ML 1ML VIAL SQ SCH ×2 (10:27→21:16)
[2020-08-17] MEDS: MULTIVIT-MINERALS ORAL LIQUID PO SCH (10:29)
[2020-08-17] MEDS: SODIUM HYPOCHLORITE 0.25%- 473 ML BULK BOTTLE TP SCH (10:38)
[2020-08-18] MEDS ORDERED: PIPERACILLIN/TAZOBACTAM 2.25 GM VIAL IVPB ONE ×2 (03:40→08:26)
[2020-08-18] MEDS ORDERED: DEXTROSE 5%-WATER - 50 ML IVPB ONE ×2 (03:41→08:26)
[2020-08-18] MEDS: PIPERACILLIN/TAZOB 2.25 GM 2.25 GM in DEXTROSE 5%-WATER - 50 ML IVPB SCH ×2 (03:55→08:50)
[2020-08-18] MEDS: LEVOTHYROXINE NA 25 MCG TABLET (FP) PO SCH ×2 (06:01→10:23)
[2020-08-18] MEDS: AMINO ACIDS/PROTEIN HYDROLYS 30 ML LIQUID.PKT PO SCH ×2 (08:50→17:40)
[2020-08-18] MEDS: MULTIVIT-MINERALS ORAL LIQUID PO SCH (09:02)
[2020-08-18] MEDS: HEPARIN NA (PORCINE) 5,000 UNITS/ML 1ML VIAL SQ SCH (09:03)
[2020-08-18 09:43] LABS: BASO % 0.6 % (0-2.0); EOS % 2.2 % (0-4.5); HEMATOCRIT 29.9 % (35.4-49); HEMOGLOBIN 9.6 GM/dL (11.7-16.9); LYMPH % 8.3 % (8-40); MCH 29.8 pg (25.7-33.7); MCHC 32.2 g/dl (32.0-35.9); MEAN CELL VOLUME 92.5 fl (80-96); MEAN PLT VOLUME 9.6 fl (7.5-11.1); MONO % 5.3 % (3.8-10.2); NEUT % 83.6 % (42.8-82.8); PLATELET COUNT 340 K/MM3 (134-434); RBC 3.24 M/mm3 (4.00-5.60); RDW 16.2 % (11.9-15.9); WHITE BLOOD COUNT 11.1 K/mm3 (4.0-10.0)
[2020-08-18 10:15] LABS: ALBUMIN 1.4 g/dl (3.4-5.0)
[2020-08-18 10:16] LABS: BLOOD UREA NITROGEN 21.2 mg/dL (7-18)
[2020-08-18 10:18] LABS: CALCIUM 7.6 mg/dL (8.5-10.1)
[2020-08-18 10:19] LABS: TOT PROT 5.3 g/dl (6.4-8.2)
[2020-08-18 10:24] LABS: BILIRUBIN,TOTAL 0.7 mg/dL (0.2-1)
[2020-08-18] MEDS: SODIUM HYPOCHLORITE 0.25%- 473 ML BULK BOTTLE TP SCH (10:25)
[2020-08-18] MEDS ORDERED: D5-1/2NS+20 MEQ KCL - 20 MEQ/1,000 ML INFUS.BAG IV SCH (12:15)
[2020-08-18] MEDS ORDERED: D5-NS + 20 MEQ KCL - 20 MEQ/1,000 ML INFUS.BAG IV SCH (12:15)
[2020-08-18] MEDS ORDERED: PROPOFOL 20 ML ONE ×2 (16:26)
[2020-08-18] MEDS ORDERED: LIDOCAINE 1%/EPI 1:100000 (50 ML MULTI DOSE VIAL) ONE (16:28)
[2020-08-18] MEDS ORDERED: LIDOCAINE 1%/EPI 1:100000 (20 ML MULTI DOSE VIAL) IJ ONE (16:40)
[2020-08-18] MEDS ORDERED: ceFAZolin SODIUM 1 GM VIAL IVPB ONE (16:48)
[2020-08-18] MEDS ORDERED: BACITRACIN 50,000 UNITS VIAL TP ONE (16:55)
[2020-08-18] MEDS ORDERED: POLYETHYLENE GLYCOL 3350 119 GM BTL PO PRN (18:27)
[2020-08-18] MEDS ORDERED: ACETAMINOPHEN 325 MG TABLET (FP) PO PRN (18:27)
[2020-08-18] MEDS: D5-1/2NS+20 MEQ KCL - 20 MEQ/1,000 ML INFUS.BAG IV SCH (18:27)
[2020-08-18] MEDS ORDERED: ALBUTEROL SO4 2.5/IPRATROPIUM 0.5 INH SOL 3 ML VIAL.NEB. NEB PRN (18:27)
[2020-08-19] MEDS: HEPARIN NA (PORCINE) 5,000 UNITS/ML 1ML VIAL SQ SCH ×3 (00:42→21:34)
[2020-08-19] MEDS: D5-1/2NS+20 MEQ KCL - 20 MEQ/1,000 ML INFUS.BAG IV SCH (05:20)
[2020-08-19] MEDS: LEVOTHYROXINE NA 25 MCG TABLET (FP) PO SCH (06:19)
[2020-08-19] MEDS: AMINO ACIDS/PROTEIN HYDROLYS 30 ML LIQUID.PKT PO SCH ×2 (08:34→17:51)
[2020-08-19 08:56] LABS: BASO % 0.5 % (0-2.0); EOS % 2.4 % (0-4.5); HEMATOCRIT 28.3 % (35.4-49); HEMOGLOBIN 9.5 GM/dL (11.7-16.9); LYMPH % 7.3 % (8-40); MCH 31.2 pg (25.7-33.7); MCHC 33.7 g/dl (32.0-35.9); MEAN CELL VOLUME 92.7 fl (80-96); MEAN PLT VOLUME 9.5 fl (7.5-11.1); MONO % 6.1 % (3.8-10.2); NEUT % 83.7 % (42.8-82.8); PLATELET COUNT 292 K/MM3 (134-434); RBC 3.06 M/mm3 (4.00-5.60); RDW 16.5 % (11.9-15.9); WHITE BLOOD COUNT 9.8 K/mm3 (4.0-10.0)
[2020-08-19 09:21] LABS: CALCIUM 7.9 mg/dL (8.5-10.1)
[2020-08-19 09:22] LABS: ALBUMIN 1.3 g/dl (3.4-5.0); BLOOD UREA NITROGEN 14.7 mg/dL (7-18)
[2020-08-19 09:25] LABS: CREATININE 0.9 mg/dL (0.55-1.3)
[2020-08-19 09:27] LABS: BILIRUBIN,TOTAL 0.3 mg/dL (0.2-1); TOT PROT 5.1 g/dl (6.4-8.2)
[2020-08-19] MEDS: SODIUM HYPOCHLORITE 0.25%- 473 ML BULK BOTTLE TP SCH (10:32)
[2020-08-19] MEDS: MULTIVIT-MINERALS ORAL LIQUID PO SCH (10:32)
[2020-08-19] MEDS: NYSTATIN 100,000 UNIT/GM TOPICAL CREAM 15 GM TUBE TP SCH ×2 (11:24→21:34)
[2020-08-19] MEDS: diphenhydrAMINE HCL 25 MG CAPSULE (FP) PO SCH (21:33)
[2020-08-19] MEDS: metroNIDAZOLE 250 MG TABLET PO SCH (21:33)
[2020-08-20] MEDS: MORPHINE SULFATE 2 MG/ML VIAL IVPUSH PRN ×3 (03:47→21:48)
[2020-08-20] MEDS: LEVOTHYROXINE NA 25 MCG TABLET (FP) PO SCH (06:40)
[2020-08-20] MEDS: metroNIDAZOLE 250 MG TABLET PO SCH ×3 (06:40→21:51)
[2020-08-20 08:29] LABS: BASO % 0.8 % (0-2.0); EOS % 4.1 % (0-4.5); HEMATOCRIT 26.7 % (35.4-49); HEMOGLOBIN 8.8 GM/dL (11.7-16.9); LYMPH % 12.6 % (8-40); MCH 30.7 pg (25.7-33.7); MCHC 33.1 g/dl (32.0-35.9); MEAN CELL VOLUME 92.8 fl (80-96); MEAN PLT VOLUME 8.9 fl (7.5-11.1); MONO % 9.3 % (3.8-10.2); NEUT % 73.2 % (42.8-82.8); PLATELET COUNT 348 K/MM3 (134-434); RBC 2.87 M/mm3 (4.00-5.60); RDW 16.7 % (11.9-15.9)
[2020-08-20 08:52] LABS: ALBUMIN 1.3 g/dl (3.4-5.0); BLOOD UREA NITROGEN 17.5 mg/dL (7-18)
[2020-08-20 08:56] LABS: CREATININE 0.9 mg/dL (0.55-1.3)
[2020-08-20 08:57] LABS: BILIRUBIN,TOTAL 0.3 mg/dL (0.2-1); TOT PROT 5.1 g/dl (6.4-8.2)
[2020-08-20] MEDS ORDERED: PT OWN MED DRAWER 7, Y5N ONE (09:28)
[2020-08-20] MEDS: HEPARIN NA (PORCINE) 5,000 UNITS/ML 1ML VIAL SQ SCH ×2 (09:33→21:49)
[2020-08-20] MEDS: AMINO ACIDS/PROTEIN HYDROLYS 30 ML LIQUID.PKT PO SCH ×2 (09:33→18:24)
[2020-08-20] MEDS: NYSTATIN 100,000 UNIT/GM TOPICAL CREAM 15 GM TUBE TP SCH ×2 (09:34→21:51)
[2020-08-20] MEDS: MULTIVIT-MINERALS ORAL LIQUID PO SCH (09:34)
[2020-08-20] MEDS: PANTOPRAZOLE SODIUM 40 MG VIAL IVPUSH SCH ×2 (12:57→21:51)
[2020-08-20] MEDS: traMADol HCL 50 MG TABLET PO PRN (14:48)
[2020-08-20] MEDS: SODIUM HYPOCHLORITE 0.25%- 473 ML BULK BOTTLE TP SCH (16:14)
[2020-08-20] MEDS: diphenhydrAMINE HCL 25 MG CAPSULE (FP) PO SCH (21:50)
[2020-08-21] MEDS: MORPHINE SULFATE 2 MG/ML VIAL IVPUSH PRN (05:09)
[2020-08-21] MEDS: metroNIDAZOLE 250 MG TABLET PO SCH ×3 (05:10→21:14)
[2020-08-21] MEDS: LEVOTHYROXINE NA 25 MCG TABLET (FP) PO SCH (06:02)
[2020-08-21] MEDS ORDERED: PT OWN MED DRAWER 7, Y5N ONE (10:16)
[2020-08-21] MEDS: traMADol HCL 50 MG TABLET PO PRN ×2 (11:30→15:45)
[2020-08-21] MEDS: AMINO ACIDS/PROTEIN HYDROLYS 30 ML LIQUID.PKT PO SCH ×2 (11:31→18:47)
[2020-08-21] MEDS: PANTOPRAZOLE SODIUM 40 MG VIAL IVPUSH SCH ×2 (11:31→21:15)
[2020-08-21] MEDS: HEPARIN NA (PORCINE) 5,000 UNITS/ML 1ML VIAL SQ SCH ×2 (11:31→21:14)
[2020-08-21] MEDS: MULTIVIT-MINERALS ORAL LIQUID PO SCH (11:31)
[2020-08-21] MEDS: NYSTATIN 100,000 UNIT/GM TOPICAL CREAM 15 GM TUBE TP SCH ×2 (11:32→21:15)
[2020-08-21] MEDS: SODIUM HYPOCHLORITE 0.25%- 473 ML BULK BOTTLE TP SCH (11:32)
[2020-08-21] MEDS: diphenhydrAMINE HCL 25 MG CAPSULE (FP) PO SCH (21:14)
[2020-08-22] MEDS: metroNIDAZOLE 250 MG TABLET PO SCH ×3 (06:03→21:28)
[2020-08-22] MEDS: LEVOTHYROXINE NA 25 MCG TABLET (FP) PO SCH (06:03)
[2020-08-22 09:27] LABS: HEMOGLOBIN 9.4 GM/dL (11.7-16.9); MCH 31.2 pg (25.7-33.7); MCHC 33.5 g/dl (32.0-35.9); MEAN CELL VOLUME 93.2 fl (80-96); MEAN PLT VOLUME 8.6 fl (7.5-11.1); PLATELET COUNT 331 K/MM3 (134-434); RBC 3.01 M/mm3 (4.00-5.60); RDW 16.8 % (11.9-15.9); WHITE BLOOD COUNT 5.5 K/mm3 (4.0-10.0)
[2020-08-22] MEDS ORDERED: PT OWN MED DRAWER 7, Y5N ONE (09:46)
[2020-08-22] MEDS: HEPARIN NA (PORCINE) 5,000 UNITS/ML 1ML VIAL SQ SCH ×2 (09:55→21:28)
[2020-08-22] MEDS: AMINO ACIDS/PROTEIN HYDROLYS 30 ML LIQUID.PKT PO SCH ×2 (09:56→18:00)
[2020-08-22] MEDS: MULTIVIT-MINERALS ORAL LIQUID PO SCH (09:56)
[2020-08-22] MEDS: SODIUM HYPOCHLORITE 0.25%- 473 ML BULK BOTTLE TP SCH (09:57)
[2020-08-22] MEDS: NYSTATIN 100,000 UNIT/GM TOPICAL CREAM 15 GM TUBE TP SCH ×2 (09:57→21:28)
[2020-08-22 09:59] LABS: ALBUMIN 1.4 g/dl (3.4-5.0)
[2020-08-22 10:00] LABS: BLOOD UREA NITROGEN 19.5 mg/dL (7-18); CALCIUM 8.1 mg/dL (8.5-10.1)
[2020-08-22 10:03] LABS: CREATININE 0.8 mg/dL (0.55-1.3)
[2020-08-22 10:04] LABS: BILIRUBIN,TOTAL 0.2 mg/dL (0.2-1); TOT PROT 5.4 g/dl (6.4-8.2)
[2020-08-22] MEDS: PANTOPRAZOLE SODIUM 40 MG VIAL IVPUSH SCH ×2 (14:53→21:29)
[2020-08-22] MEDS: diphenhydrAMINE HCL 25 MG CAPSULE (FP) PO SCH (21:28)
[2020-08-23] MEDS: LEVOTHYROXINE NA 25 MCG TABLET (FP) PO SCH (06:35)
[2020-08-23] MEDS: metroNIDAZOLE 250 MG TABLET PO SCH (06:35)
[2020-08-23 09:22] VITALS: TEMP 98.2
[2020-08-23] MEDS ORDERED: PT OWN MED DRAWER 7, Y5N ONE (10:09)
[2020-08-23] MEDS: AMINO ACIDS/PROTEIN HYDROLYS 30 ML LIQUID.PKT PO SCH (10:11)
[2020-08-23] MEDS: PANTOPRAZOLE SODIUM 40 MG VIAL IVPUSH SCH (10:12)
[2020-08-23] MEDS: MULTIVIT-MINERALS ORAL LIQUID PO SCH (10:12)
[2020-08-23] MEDS: NYSTATIN 100,000 UNIT/GM TOPICAL CREAM 15 GM TUBE TP SCH (10:12)
[2020-08-23] MEDS: HEPARIN NA (PORCINE) 5,000 UNITS/ML 1ML VIAL SQ SCH (10:12)
[2020-08-23] MEDS ORDERED: MORPHINE SULFATE 2 MG/ML VIAL IVPUSH ONE (10:47)
[2020-08-23] MEDS: SODIUM HYPOCHLORITE 0.25%- 473 ML BULK BOTTLE TP SCH (10:55)
[2020-08-23 12:34] VITALS: BP 126/64; PULSE 75
== END 2020-08-23 13:06 | disposition hospice, inpatient (51) | DRG 853 ==
LOC: JER 18:30 → JERBED 21:35 → J8W 08-07 06:29 → JICU 08-07 20:48 → J5S 08-12 19:29
PROVIDERS: ADMIT Internal Medicine; ATTEND Family Medicine
PROC: 0KBK0ZZ Excision of Right Abdomen Muscle, Open Approach (ICD-10-PCS; 2020-08-07)
PROC: 0VB50ZZ Excision of Scrotum, Open Approach (ICD-10-PCS; 2020-08-07)
PROC: 0VBS0ZZ Excision of Penis, Open Approach (ICD-10-PCS; 2020-08-07)
PROC: 0CHY7BZ Insertion of Airway into Mouth and Throat, Via Natural or Artificial Opening (ICD-10-PCS; 2020-08-07)
PROC: 5A1945Z Respiratory Ventilation, 24-96 Consecutive Hours (ICD-10-PCS; 2020-08-07)
PROC: 0KBL0ZZ Excision of Left Abdomen Muscle, Open Approach (ICD-10-PCS; principal; 2020-08-07 14:43)
PROC: 05HM33Z Insertion of Infusion Device into Right Internal Jugular Vein, Percutaneous Approach (ICD-10-PCS; 2020-08-08)
PROC: 0JB80ZZ Excision of Abdomen Subcutaneous Tissue and Fascia, Open Approach (ICD-10-PCS; 2020-08-18)
PROC: 0JBC0ZZ Excision of Pelvic Region Subcutaneous Tissue and Fascia, Open Approach (ICD-10-PCS; 2020-08-18)
PROC: 2W16X6Z Compression of Right Inguinal Region using Pressure Dressing (ICD-10-PCS; 2020-08-18)
DX: A41.89 Other specified sepsis (principal); G93.41 Metabolic encephalopathy; M72.6 Necrotizing fasciitis; J96.01 Acute respiratory failure with hypoxia; N17.9 Acute kidney failure, unspecified; E87.2 Acidosis; N13.6 Pyonephrosis; R57.9 Shock, unspecified; E03.9 Hypothyroidism, unspecified; C61 Malignant neoplasm of prostate; D69.6 Thrombocytopenia, unspecified; D64.9 Anemia, unspecified; I10 Essential (primary) hypertension; E87.5 Hyperkalemia; D72.829 Elevated white blood cell count, unspecified; N50.89 Other specified disorders of the male genital organs; Z20.822 Contact with and (suspected) exposure to COVID-19
CPT/HCPCS: 36415; 36430; 36600; 70450-TC; 71045-TC-FY; 71250-TC; 72125-TC; 74176-TC; 76775-TC; 80048; 80053; 81003; 82272; 82550; 82553; 82607; 82728; 82803; 83540; 83550; 83605; 83735; 84100; 84439; 84443; 84484; 85025; 85027; 85610; 85730; 86850; 86900; 86901; 86922; 87040; 87070; 87076; 87086; 87186; 87205; 88304-TC; 93005; 93010; 94002; 94640; 94760; 97116-GP; 97162-GP; 99285-25; C9803; J0131; J1644; P9058; U0003; U0005